=== PATIENT | male | born 1960 | race American Indian/Alaskan Native ===

== ENCOUNTER 2018-12-20 06:27 | Day surgery (SDC) | payer BC ==
[2018-12-20 06:57] VITALS: BMI 27.5
[2018-12-20] MEDS ORDERED: Propofol 10 mg/ml Inj (20 ML) ONE ×2 (07:57→08:21)
[2018-12-20] MEDS ORDERED: Midazolam 2 MG/2 ML VIAL ONE (07:57)
[2018-12-20 08:38] VITALS: O2SAT 99
[2018-12-20 09:29] VITALS: BP 134/72; PULSE 76; RESP 18; TEMP 98.2
== END 2018-12-20 09:25 | disposition home or self-care (01) ==
LOC: C.ENDO 06:27
PROVIDERS: ATTEND Internal Medicine Gastroenterology
DX: D12.5 Benign neoplasm of sigmoid colon (principal); Z12.11 Encounter for screening for malignant neoplasm of colon; K64.1 Second degree hemorrhoids; K57.30 Diverticulosis of large intestine without perforation or abscess without bleeding; K62.1 Rectal polyp
CPT/HCPCS: 45380; 88305; J2250; J2704